=== PATIENT | female | born 1975 | race Caucasian/White ===

== ENCOUNTER 2021-03-23 18:46 | Emergency (ER) | payer OTHER, MEDICAID, SELFPAY ==
[2021-03-23 18:47] VITALS: BP 118/80; PULSE 105; RESP 16; TEMP 35.9; O2SAT 100; BMI 17.6
--- NOTE | 2021-03-23 19:17 | US_ITS ---
STUDY: ABDOMINAL ULTRASOUND - RIGHT UPPER QUADRANT REASON FOR VISIT: Female, 46 years old RT BACK PAIN TECHNIQUE: Ultrasound evaluation of the right upper quadrant was performed with real-time and static murillo-scale imaging. TECHNICAL QUALITY: Adequate. COMPARISON: None. FINDINGS: Liver: The liver measures 14.3 cm. There is normal echogenicity of the liver. The bile ducts are within normal limits. There is hepatic color flow. The direction of portal flow is hepatopetal. Small hyperechoic nodule in the. Right lobe of the liver measuring approximately 1.8 x 1.6 cm likely hemangioma Gallbladder: Normal distended gallbladder. The gallbladder wall measures 2 mm. There is a negative sonographic Hi''s sign. There is no pericholecystic fluid. There are no gallstones. Common Bile Duct (C.B.D.): The common bile duct measures 3 mm. Pancreas: Normal size of the head, body and tail of the pancreas. There is normal echogenicity of the pancreas. There is no demonstrated pancreatic mass or cyst. Right Kidney: Normal size of the right kidney. The right kidney measures 10.6 x 4.5 x 4 cm. Normal renal cortex. The right cortex measures 1.6 cm. There is no demonstrated renal mass or cyst. There is no right hydronephrosis. US/Gallbladder IMPRESSION: Probable small hemangioma in the right lobe of the liver. Otherwise unremarkable study. Electronically Signed: Sy Vance MD at 20:26 EST , Service support ,
--- NOTE | 2021-03-23 19:20 | EX.ED.DYSGE1 ---
HPI History of Present Illness Chief Complaint: Back Informant: patient Onset/Context/Timing Onset: Days (3) Context: Sudden Onset Timing: Intermittent Quality: pain, spasm Location: right flank, sometimes bilat low back, sometimes bilat abd Current Severity: Mild Maximum Severity: Severe Worsened by: sometimes certain movements, sometimes 30 min after food Relieved by: ? by tizanadine Associated Symptoms Associated Symptoms: no cp, sob, cough, fever Narrative Narrative: 46-year-old female states she started having spontaneous onset of intermittent right mid back pain several days ago, she saw urgent care last night states she had a urinalysis that showed glucose only and nothing else, she is a type I diabetic, and she was put on tizanidine. She has been taking that every 4-6 hours, and states it seems to be helping but she is not sure if it is that or something else. Now tonight it is not helping. She noticed it was worse after eating fried chicken, and it seemed to be in her right upper quadrant area, but she is very vague about the location and details of the symptoms that she currently does not have. When asked if they ever radiated to the right shoulder, she states yes she did notice that once. Sometimes she seems to be triggering the pain in her right mid lateral back with certain movements and other times seems to come on randomly. She is seeking out another opinion because she wants to know what is wrong. She states she feels okay right now. She did have some periods of nausea, no vomiting or diarrhea. She has never had any abdominal surgeries in the past. [facility] Medical History (Updated 03/23/21 @ 22:[address] Rylan Shaw MD) Type I diabetes mellitus Home Medications tizanidine 2 mg PO Q6H PRN #15 cap 03/23/21 [Rx Last Taken Unknown] Allergy/AdvReac Type Severity Reaction Status Date / Time No Known Allergies Allergy Verified 03/23/21 18:47 Social History Smoking Status: Never smoker ROS [facility] ED Constitutional Constitutional ED: Denies chills or fever(s) Eyes Eyes: Denies change in vision or diplopia ENT ENT ED: Denies rhinorrhea or sore throat Cardiovascular Cardiovascular: Denies chest pain or palpitations Respiratory/Chest Respiratory/Chest: Denies cough or dyspnea Gastrointestinal Gastrointestinal: Reports as per HPI, abdominal pain and nausea; Denies diarrhea or vomiting Genitourinary Genitourinary ED: Denies dysuria or hematuria Musculoskeletal Musculoskeletal: Reports as per HPI and back pain; Denies neck pain Integumentary Denies abscess or rash Neurologic Neurologic: Denies headache(s), paresthesias or weakness Psychiatric Psychiatric: Denies anxiety or suicidal thoughts EXAM Physical Exam Const Vital Signs: 03/23/21 18:47 Temperature 96.7 F L Temperature Source Temporal Pulse Rate 105 H Respiratory Rate 16 Blood Pressure 118/80 Blood Pressure Mean 92 Pulse Ox 100 Oxygen Delivery Method Room Air Positive well nourished and well developed General Appearance ED: well developed and NAD HEENT Reports moist mucous membranes normocephalic and atraumatic Eyes PERRL and EOMs intact bilaterally Neck full ROM and supple Resp normal respiratory effort and clear to auscultation bilaterally Cardio regular rate, regular rhythm and no murmurs GI non-distended GI Narrative: Mild tenderness right upper quadrant negative Hi. The rest of her abdominal exam is benign. No guarding or rebound tenderness. No palpable or pulsatile mass. Auscultation: normoactive bowel sounds Palpation: soft Back/Spine no CVA tenderness Back/Spine Narrative: Normal inspection no rash. No superficial tenderness throughout the ribs or low back bilaterally over the midline. General Back: other FROM Extremity normal to inspection General Extremety ED: Negative for edema, pulses abnormal or tenderness General Extremity: Negative for edema or pulses abnormal Neuro oriented x3, CN's II-XII intact bilaterally and no sensory deficits noted Sensorium / Orientation: awake and alert Motor Exam: strength 5/5 throughout Skin no rashes or lesions noted and no wounds MDM MDM MDM Narrative Medical decision making narrative: Patient presents with a very odd history; she states things like at one point it feels like ovulatory pain and unusual symptoms that seem intermittent. Therefore with the history was given, I decided to make sure she did not have any reason to have biliary colic. Her work-up is essentially completely normal aside from a glucose of 219 but she is a type I diabetic, and her urine does not show any blood to suggest a stone or other urinary tract problem. When I reexamined her, she now is really focusing on the fact that these are muscle spasms and I need an antispasmodic. She has been taking the tizanidine and states that it works but the way they prescribed it was only half a pill every 6 hours and she needs more than that, states that it is helping when she takes it and helping her work, when she gets these muscle spasms it takes her to the floor and she wants something to fix this so that she can work. As I discussed with her, I am not can prescribe her any narcotics because she cannot work while she is taking those, and if the tizanidine are helping and not sedating her, I will prescribe her a short amount more until she can follow-up with the PCP which she states she has none. Lab Data Attestation: I reviewed the patient's lab results. Labs: Laboratory Results - last 24 hr 03/23/21 03/23/21 03/23/21 19:31 19:31 20:19 WBC 8.7 RBC 4.15 L Hgb 12.2 Hct 37.8 MCV 91.1 MCH 29.4 MCHC 32.3 RDW Std Deviation 42.5 RDW Coeff of Nishant 12.8 Plt Count 239 MPV 10.0 Immature Gran % (Auto) 0.200 Neut % (Auto) 71.7 H Lymph % (Auto) 15.8 L Amelia % (Auto) 11.1 H Eos % (Auto) 0.9 Baso % (Auto) 0.3 Absolute Neuts (auto) 6.2 Absolute Lymphs (auto) 1.37 Nucleated RBC % 0 Sodium 142 Potassium 3.8 Chloride 109 H Carbon Dioxide 28.0 Anion Gap 5 BUN 20 H Creatinine 1.18 H Estim Creat Clear Calc 47.73 Est GFR (MDRD) Af Amer 63 Est GFR (MDRD) Non-Af 52 L BUN/Creatinine Ratio 16.9 Glucose 219 H Calcium 9.6 Total Bilirubin 0.10 L AST 14 L ALT 26 Alkaline Phosphatase 62 Total Protein 7.0 Albumin 3.2 Globulin 3.8 Albumin/Globulin Ratio 0.8 L Lipase 110 Urine Color Yellow Urine Clarity Sl. Cloudy Urine pH 6.5 Ur Specific [place] 1.020 Urine Protein 30 H Urine Glucose (UA) 50 H Urine Ketones 5 H Urine Occult Blood Negative Urine Nitrite Negative Urine Bilirubin Negative Urine Urobilinogen 1 H Ur Leukocyte Esterase 25 H Urine RBC 0 SEEN Urine WBC 0-5 SEEN Ur Squamous Epith Cells 0-5 SEEN Amorphous Sediment 1+ Urine Bacteria 1+ Urine Mucus 0 SEEN Radiography Diagnostic Testing: Clinical Impression(s) from Imaging Studies Gallbladder Ultrasound 03/23/21 19:17 IMPRESSION: Probable small hemangioma in the right lobe of the liver. Otherwise unremarkable study. Electronically Signed: Sy Vance MD at 20:26 EST , Service support , Discharge Plan Triage Chief Complaint: Back ED Provider: Rylan Shaw Dx/Rx/DC Orders Clinical Impression: Muscle spasm of back, Intermittent right upper quadrant abdominal pain Instructions: Muscle Spasm, Relieving Back Pain Prescriptions: New tizanidine 2 mg capsule 2 mg PO Q6H PRN (Reason: muscle spasticity) Qty: 15 RF: 0 Primary Care Provider: Care Physician,No Primary Referrals: Marianela Brand MD [STAFF PHYSICIAN] - 1 Week if not improving Care Physician,No Primary [Primary Care Provider] - Disposition Disposition: Home, Self Care
[2021-03-23 19:35] LABS: Absolute Lymphocyte Count 1.37 X10^3/uL (0.83-4.51); Absolute Neutrophil Count 6.2 X10^3/uL (2.0-7.7); Basophil# 0.03 X10^3/uL; Basophil% 0.3 % (0-1); Eosinophil# 0.08 X10^3/uL; Eosinophils% 0.9 % (0-5); Hematocrit 37.8 % (37-47); Hemoglobin 12.2 g/dL (12.0-15.0); Lymphocyte # 1.37 X10^3/ul (0.83-4.51); Lymphocyte % 15.8 % (19-41); Mean Corp Hgb Conc 32.3 g/dL (32-36); Mean Corpuscular Hgb 29.4 pg (27.0-32.0); Mean Corpuscular Volume 91.1 fL (81-99); Monocyte# 0.96 X10^3/uL; Monocyte% 11.1 % (0-10); NRBC Flagged by Analyzer 0 % (0-5); Neutrophil # 6.19 X10^3/uL (2.7-7.7); Neutrophil % 71.7 % (47-70); Platelet Count 239 K/mm3 (150-450); RBC Distribution Width CV 12.8 % (11.6-14.6); RBC Distribution Width SD 42.5 fl (35.1-43.9); Red Blood Count 4.15 M/mm3 (4.2-5.4); White Blood Count 8.7 K/mm3 (4.4-11.0)
[2021-03-23 19:52] LABS: ALB/GLOB Ratio 0.8 RATIO (0.9-2.4); AST(SGOT) 14 U/L (15-37); Alanine Aminotransfer ALT/SGPT 26 U/L (13-56); Albumin, Serum 3.2 g/dL (3.2-5.0); Alkaline Phosphatase 62 U/L (45-117); Anion Gap 5 (5-15); BUN 20 mg/dL (7-18); BUN/Creat Ratio 16.9 RATIO (10-20); Calcium,Total 9.6 mg/dL (8.5-10.1); Chloride 109 mmol/L (98-107); Creatinine, Serum 1.18 mg/dL (0.55-1.02); EST Glomerular Filtration Rate 52 mL/min (>60); Est Glom Filt Rate - Afr Amer 63 mL/min (>60); Estimated Creatinine Clearance 47.73 ml/min; Globulin 3.8 g/dL (2.2-4.2); Glucose 219 mg/dL (74-106); Lipase 110 U/L (73-393); Potassium 3.8 mmol/L (3.5-5.1); Sodium Level 142 mmol/L (136-145)
[2021-03-23 20:25] LABS: Mucous, Urine 0 SEEN /hpf (<or=2+); Red Blood Cells-Urine 0 SEEN /hpf (0-5)
[2021-03-23 20:26] LABS: Color, Urine Yellow (Yellow); Glucose, Dipstick 50 mg/dl (Normal); Ketone-Dipstick 5 mg/dl (Negative); Leukocyte Esterase-Dipstick 25 /ul (Negative); Nitrite-Dipstick Negative (Negative); Occult Blood-Urine Negative /ul (Negative); Protein-Dipstick 30 mg/dl (Negative); Urine Bilirubin Dipstick Negative (Negative); Urine Clarity Sl. Cloudy (Clear); Urine Urobilinogen 1 mg/dl (Normal); Urine pH 6.5 (5.0 - 8.0)
[2021-03-23 20:35] LABS: Squamous Epithelial Cells - UA 0-5 SEEN /hpf (5-10); White Blood Cells 0-5 SEEN /hpf (0-5)
[2021-03-23 20:36] LABS: Amorphous Sediment 1+; Bacteria 1+ /hpf (None Seen)
[2021-03-23] MEDS: Ketorolac 15 MG/ML Vial IV (22:06)
== END 2021-03-23 22:48 | disposition home or self-care (01) ==
PROVIDERS: Emergency Provider Emergency Medicine; Visit Provider Emergency Medicine
DX: M62.838 Other muscle spasm (principal); E10.9 Type 1 diabetes mellitus without complications; R10.11 Right upper quadrant pain
CPT/HCPCS: 76705; 80053; 81001; 83690; 85025; 96374; 99283; A4216